=== PATIENT | female | born 1980 | race Caucasian/White ===

== ENCOUNTER 2020-01-18 21:52 | Emergency (ER) | payer OTHER, MEDICAID, SELFPAY ==
[2020-01-18 22:05] VITALS: BP 144/76; PULSE 70; RESP 16; TEMP 37.3; O2SAT 100
--- NOTE | 2020-01-18 22:05 | ED_ITS ---
HPI - General Chief complaint: Vaginal Bleeding Stated complaint: 4 wks abd pain bleeding cramping Time Seen by Provider: 01/18/20 21:52 Source: patient Mode of arrival: Ambulatory Limitations: no limitations History of Present Illness HPI Narrative: 39F non smoker presents with her significant other and chief complaint of vaginal spotting and some lower abdominal discomfort for upwards of 12 days. She was seen and evaluated at an outside clinic and had a positive urine test and was sent here to rule out ectopic. Her bleeding is very minimal and she is not dizzy nor weak or lightheaded. She is a at which she thinks is about 4 weeks. She is otherwise healthy and free of complaint. MD Complaint: vaginal bleeding Onset (ago): day(s) Pain Consistency: intermittent Location: abdomen Severity: mild Quality: Aching Radiation: pelvis Relieving factors: none Exacerbating factors: none Associated symptoms: vaginal bleeding Vaginal discharge: none Vaginal bleeding: light Patient : Yes Number of Weeks : 4 OB History - Current : no complications OB History - Previous Pregnancies: other care: none Related Data : 2 Para: 0 Total number of abortions (spontaneous and elective): 1 Home Medications Medication Instructions Recorded Confirmed No Known Home Medications 01/18/20 01/18/20 Allergies Allergy/AdvReac Type Severity Reaction Status Date / Time No Known Drug Allergies Allergy Verified 01/18/20 22:09 Review of Systems Constitutional Constitutional: Denies chills, Denies fatigue, Denies fever(s), Denies frequent falls, Denies lethargy and Denies weakness Eyes Eyes: Denies change in vision, Denies eye discharge, Denies irritation and Denies loss of vision ENT Ears, Nose, Mouth, and Throat: Denies change in voice, Denies dizziness, Denies neck pain, Denies sore throat and Denies throat swelling Cardiovascular Cardiovascular: Denies chest pain, Denies irregular heart rhythm, Denies lightheadedness, Denies palpitations, Denies dyspnea, Denies dyspnea on exertion and Denies orthopnea Respiratory Respiratory: Denies cough, Denies dyspnea, Denies dyspnea on exertion and Denies wheezing Gastrointestinal Gastrointestinal: Denies abdominal pain, Denies change in bowel habits, Denies diarrhea, Denies nausea and Denies vomiting Genitourinary Genitourinary: Reports abnormal vaginal bleeding, Denies hematuria, Reports pelvic pain, Denies flank pain, Denies urinary incontinence and Denies urinary urgency Musculoskeletal Musculoskeletal: Denies back pain, Denies muscle weakness, Denies neck pain, Denies numbness and Denies tingling Integumentary/Breasts Skin/Breast: Denies pruritus, Denies erythema, Denies rash and Denies wounds Neurologic Neurologic: Denies behavioral changes, Denies confusion, Denies dizziness, Denies frequent falls, Denies loss of vision, Denies numbness, Denies tingling and Denies weakness Psychiatric Psychiatric: Denies anxiety, Denies behavioral changes, Denies confusion, Denies depression, Denies homicidal ideation and Denies suicidal ideation Endocrine Endocrine: Denies fatigue, Denies flushing and Denies palpitations Hematologic/Lymphatic Hematologic/Lymphatic: Denies easy bruising Allergic/Immunologic Allergic/Immunologic: Denies urticaria, Denies throat swelling and Denies wheezing PMFSH - Past Medical History Patient : Yes Exam Narrative Exam Narrative: GENERAL: [39] year old patient appears stated age. Well- nourished, well-developed patient, in mild distress. HEAD: Atraumatic. Normocephalic. EYES: Pupils equal round and reactive. Extraocular motions intact. No scleral icterus. No injection or drainage. ENT: Nose without bleeding, purulent drainage. Throat without erythema, tonsi llar hypertrophy or exudate. Airway patent. NECK: Trachea midline. Non tender CARDIOVASCULAR: Regular rate and rhythm without murmurs, gallops, or rubs. RESPIRATORY: Clear to auscultation. Breath sounds equal bilaterally. No wheezes, rales, or rhonchi. GASTROINTESTINAL: Abdomen soft, minimal lower tenderness, nondistended. EXTREMITIES: No edema or joint tenderness. BACK: Nontender without deformity or crepitance. No flank tenderness. NEURO: AOx3. SKIN: No rash or erythema of visible areas Initial Vital Signs Initial Vital Signs: Vital Signs Temperature 99.1 F 01/18/20 22:05 Pulse Rate 70 01/18/20 22:05 Respiratory Rate 16 01/18/20 22:05 Blood Pressure 144/76 H 01/18/20 22:05 Pulse Oximetry 100 01/18/20 22:05 Procedures Number of Weeks : 4 Course Orders Ordered: ED Orders 01/18/20 22:10 Urine Microscopic Stat 01/18/20 22:21 ABO RH Type Stat Basic Metabolic Panel Stat Complete Blood Count AUTO DIFF Stat HCG Quantitative /Beta subunit Stat 01/18/20 22:54 US pelvic complete Stat Vital Signs Vital signs: Vital Signs - 8 hr 01/18/20 22:05 01/18/20 23:52 Temperature 99.1 F Pulse Rate 70 78 Respiratory Rate 16 16 Blood Pressure 144/76 H Blood Pressure [Left Arm] 120/63 Pulse Oximetry 100 99 MDM - OB/Uterine Contractions Lab Data Result diagrams: 01/18/20 22:21 01/18/20 22:21 Labs: Lab Results 01/18/20 01/18/20 01/18/20 Range/Units 22:10 22:21 22:21 WBC 6.2 (4.5-11.0) X10^3/uL RBC 3.67 L (4.0-5.2) X10^6/uL Hgb 11.7 L (12.0-16.0) g/dL Hct 34.4 L (36-46) % MCV 93.7 (80-100) fL MCH 31.9 (26-34) PG MCHC 34.0 (30-36) % RDW 13.1 (11.6-14.8) % Plt Count 228 (150-400) X10^3/uL Neut % (Auto) 58.1 (50-75) % Lymph % (Auto) 28.2 (25-40) % Prentiss % (Auto) 10.0 (3-14) % Eos % (Auto) 3.2 (2-4) % Baso % (Auto) 0.5 (0-2) % Neut # (Auto) 3600 (3164-6480) /uL Lymph # (Auto) 1800 (2821-7972) /uL Prentiss # (Auto) 600 (0-900) /uL Eos # (Auto) 200 (0-450) /uL Baso # (Auto) 0 (0-100) /uL Sodium (137-145) mmol/L Potassium (3.4-5.1) mmol/L Chloride (98-107) mmol/L Carbon Dioxide (22-32) mmol/L BUN (7-17) mg/dL Creatinine (0.52-1.04) mg/dL Estimated GFR (>60) mL/min BUN/Creatinine Ratio (6-22) Glucose (70-100) mg/dL Calcium (8.4-10.2) mg/dL HCG, Quant mIU/mL Urine RBC 0-1/hpf (0-5/HPF) Urine WBC None seen (0-5/HPF) Ur Squamous Epith Cells 0-1 /hpf (0-5/HPF) Urine Bacteria None seen (None) Ur Culture Indicated? Cult not indicated Blood Type A Positive 01/18/20 01/18/20 Range/Units 22:21 22:21 WBC (4.5-11.0) X10^3/uL RBC (4.0-5.2) X10^6/uL Hgb (12.0-16.0) g/dL Hct (36-46) % MCV (80-100) fL MCH (26-34) PG MCHC (30-36) % RDW (11.6-14.8) % Plt Count (150-400) X10^3/uL Neut % (Auto) (50-75) % Lymph % (Auto) (25-40) % Prentiss % (Auto) (3-14) % Eos % (Auto) (2-4) % Baso % (Auto) (0-2) % Neut # (Auto) (7355-6874) /uL Lymph # (Auto) (9909-6515) /uL Prentiss # (Auto) (0-900) /uL Eos # (Auto) (0-450) /uL Baso # (Auto) (0-100) /uL Sodium 138 (137-145) mmol/L Potassium 3.4 (3.4-5.1) mmol/L Chloride 105 (98-107) mmol/L Carbon Dioxide 28 (22-32) mmol/L BUN 10 (7-17) mg/dL Creatinine 0.66 (0.52-1.04) mg/dL Estimated GFR > 60.0 (>60) mL/min BUN/Creatinine Ratio 15.2 (6-22) Glucose 87 (70-100) mg/dL Calcium 8.9 (8.4-10.2) mg/dL HCG, Quant 77.8 mIU/mL Urine RBC (0-5/HPF) Urine WBC (0-5/HPF) Ur Squamous Epith Cells (0-5/HPF) Urine Bacteria (None) Ur Culture Indicated? Blood Type Point of Care Testing Test Results Positive Urine Dip Bedside Urine Glucose Negative Bedside Urine Bilirubin - Negative Bedside Urine Ketone - Negative Urine Specific Turner 1.010 Bedside Urine Occult Blood ++ Bedside Urine pH 6.0 Bedside Urine Protein - Negative Bedside Urine Urobilinogen - Negative Bedside Urine Nitrite - Negative Bedside Urine Leukocytes - Negative Esterase Imaging Data US - OB: Radiologist's Impression: No IUP, ectopic, or other abnormality MDM Narrative Medical decision making narrative: Most likely dx is missed AB given extremely low HCG and duration of symptoms, though (as discussed at length) with patient her we cannot rule out early ectopic. Patient and understand this concept and the need for follow up and repeat labs. They understand return precautions and have had questions answered to their apparent satisfaction. Discharge Plan Departure Patient Disposition: Home Clinical Impression: Vaginal bleeding, Missed Discharge Date/Time: 01/19/20 00:09 Instructions: DI for Vaginal Bleeding Activity Restrictions/Additional Instructions: *You have been diagnosed with [vaginal bleeding in . Most likely a missed , however early ectopic cannot be ruled out, for this reason you will need repeat labs in 48-72 hours and possibly a repeat ultrasound depending what your provider thinks] *What to do: *Take medications as directed *Follow up with your primary care provider in 2-3 days, call for an appointment. Let them know you were seen in the Emergency Department and that we ask that you be seen in follow up *Return to ER if you should have any new, worsening or concerning symptoms, such as [ increased bleeding (more than 1 pad per hour), severe pain or other bothersome symptoms] Prescriptions: No Action No Known Home Medications RF: 0
--- NOTE | 2020-01-18 22:23 | PC.NURSE ---
Patient reports she began spotting 12 days ago and thought she was simply starting her period, however it has lasted abnormally long with some low back and LLQ abdominal discomfort. Blood is bright red and more however still not a lot the last day.
[2020-01-18 22:24] LABS: Bacteria Urine None Seen; WBC Urine None Seen (0-5/HPF)
[2020-01-18 22:35] LABS: Add Manual Diff / Slide Review NO; Basophils Absolute Auto 0 /uL (0-100); Basophils Percent Auto 0.5 % (0-2); Eosinophils Absolute Auto 200 /uL (0-450); Eosinophils Percent Auto 3.2 % (2-4); Hematocrit 34.4 % (36-46); Hemoglobin 11.7 g/dL (12.0-16.0); Lymphocytes Absolute Auto 1800 /uL (1100-4500); Lymphocytes Percent Auto 28.2 % (25-40); Mean Corpuscular Hemoglobin 31.9 PG (26-34); Mean Corpuscular Volume 93.7 fL (80-100); Monocytes Absolute Auto 600 /uL (0-900); Neutrophils Absolute Auto 3600 /uL (1500-7000); Neutrophils Percent Auto 58.1 % (50-75); Platelet Count 228 X10^3/uL (150-400); Red Blood Cell Count 3.67 X10^6/uL (4.0-5.2); Red Cell Distribution Width 13.1 % (11.6-14.8); White Blood Cell Count 6.2 X10^3/uL (4.5-11.0)
[2020-01-18 22:37] LABS: Culture Indicated Urine Cult Not Indicated; RBC Urine 0-1/HPF (0-5/HPF); Squamous Epithelial Cell Urine 0-1 /HPF (0-5/HPF)
[2020-01-18 22:41] LABS: BUN Creatinine Ratio 15.2 (6-22); Blood Urea Nitrogen 10 mg/dL (7-17); Calcium 8.9 mg/dL (8.4-10.2); Carbon Dioxide 28 mmol/L (22-32); Chloride 105 mmol/L (98-107); Estimated Glomerular Filt Rate > 60.0 mL/min (>60); Glucose 87 mg/dL (70-100); HEMOLYSIS < 15 (0-50); Potassium 3.4 mmol/L (3.4-5.1); Sodium 138 mmol/L (137-145)
--- NOTE | 2020-01-18 22:54 | DI.US.S_ITS ---
PROCEDURE: US PELVIC COMPLETE INDICATIONS: PAIN, BLEEDING; POSITIVE TECHNIQUE: Real-time scanning was performed of the pelvic organs, with image documentation. Additional endovaginal scanning was necessary due to incomplete visualization of the adnexal and endometrial structures by transabdominal scanning. COMPARISON: None. FINDINGS: Transabdominal scanning: Limited scanning through the kidneys shows no hydronephrosis. No pathologic free abdominal or pelvic fluid. Endovaginal scanning: Uterus: Uterus is anteverted and normal in size at 7.7 x 3.7 x 6.8 cm. The endometrium measures 3.8 mm in combined thickness. No endometrial fluid collections. Ovaries: The right ovary measures 2.4 x 1.5 x 2.7 cm. The left ovary measures 3.0 x 1.8 x 1.2 cm. There is a normal follicular echotexture and blood flow within each ovary. No suspicious adnexal masses. No free pelvic fluid. IMPRESSION: 1. No evidence of intrauterine . This may represent a very early or failed . Clinical correlation with serial beta hCG levels is recommended. Followup ultrasound imaging if beta hCG levels rise. 2. Normal ovaries. Dictated by: Danielle Rollins M.D. on 01/19/2020 at 9:15 Approved by: Danielle Rollins M.D. on 01/19/2020 at 9:17
[2020-01-18 23:23] LABS: HCG Quantitative /Beta subunit 77.8 mIU/mL
[2020-01-18 23:52] VITALS: BP 120/63; PULSE 78; RESP 16; O2SAT 99
== END 2020-01-19 00:09 | disposition home or self-care (01) ==
PROVIDERS: Emergency Provider Emergency Medicine
DX: O02.1 Missed abortion (principal)
CPT/HCPCS: 36415; 76830; 76856; 80048; 81003; 81015; 81025; 84702; 85025; 86900; 86901; 99283; 99284

== ENCOUNTER → 2021-11-07 11:09 | Outpatient (CLI) | payer OTHER, MEDICAID, SELFPAY ==
[2021-11-07 18:47] LABS: Add Manual Diff / Slide Review NO; Basophils Absolute Auto 0 /uL (0-100); Basophils Percent Auto 0.5 % (0-2); Eosinophils Absolute Auto 100 /uL (0-450); Eosinophils Percent Auto 3.2 % (2-4); Hematocrit 37.9 % (36-46); Hemoglobin 12.6 g/dL (12.0-16.0); Lymphocytes Absolute Auto 900 /uL (1100-4500); Mean Corpuscular HGB Conc 33.3 % (30-36); Mean Corpuscular Hemoglobin 30.9 PG (26-34); Mean Corpuscular Volume 92.8 fL (80-100); Monocytes Absolute Auto 400 /uL (0-900); Neutrophils Absolute Auto 2800 /uL (1500-7000); Neutrophils Percent Auto 65.3 % (50-75); Platelet Count 214 X10^3/uL (150-400); Red Blood Cell Count 4.08 X10^6/uL (4.0-5.2); Red Cell Distribution Width 12.6 % (11.6-14.8); White Blood Cell Count 4.3 X10^3/uL (4.5-11.0)
[2021-11-07 18:54] LABS: Alanine Aminotransferase 10 IU/L (<35); Albumin 4.2 g/dL (3.5-5.0); Albumin Globulin Ratio 1.6 (1.0-2.8); Alkaline Phosphatase 40 U/L (38-126); Aspartate Aminotransferase 21 IU/L (14-36); BUN Creatinine Ratio 17.5 (6-22); Bilirubin Total 0.5 mg/dL (0.2-1.3); Blood Urea Nitrogen 11 mg/dL (7-17); Calcium 9.1 mg/dL (8.4-10.2); Carbon Dioxide 30 mmol/L (22-32); Chloride 106 mmol/L (98-107); Estimated Glomerular Filt Rate > 60.0 mL/min (>60); Globulin 2.6 g/dL (1.7-4.1); Glucose 85 mg/dL (70-100); HEMOLYSIS < 15 (0-50); Potassium 4.1 mmol/L (3.4-5.1); Sodium 139 mmol/L (137-145); Total Protein 6.8 g/dL (6.3-8.2)
[2021-11-07 19:20] LABS: Follicle Stimulating Hormone 8.27 mIU/mL; Luteinizing Hormone 7.69 mIU/mL
[2021-11-07 19:30] LABS: Thyroid Stimulating Hormone 0.847 uIU/mL (0.47-4.68)
[2021-11-07 20:07] LABS: Free T3, Triiodothyronine Free 3.35 pg/mL (2.77-5.27); Free T4, Direct Thyroxine 1.14 ng/dL (0.78-2.19)
[2021-11-07 20:14] LABS: Vitamin D 25 Hydroxy (D3) 32.3 ng/mL (30.0-100.0)
== END ==
PROVIDERS: PCP Physician Assistant Medical; Visit Provider Physician Assistant Medical
DX: R79.89 Other specified abnormal findings of blood chemistry (principal); E07.9 Disorder of thyroid, unspecified; E04.1 Nontoxic single thyroid nodule; N94.3 Premenstrual tension syndrome
CPT/HCPCS: 80053; 82306; 83001; 83002; 84439; 84443; 84481; 85025

== ENCOUNTER → 2022-12-12 10:40 | Outpatient (CLI) | payer OTHER, MEDICAID, SELFPAY ==
[2022-12-12 19:55] LABS: Add Manual Diff / Slide Review NO; Basophils Absolute Auto 0 /uL (0-100); Basophils Percent Auto 0.4 % (0-2); Eosinophils Absolute Auto 200 /uL (0-450); Eosinophils Percent Auto 3.7 % (2-4); Hematocrit 38.1 % (36-46); Hemoglobin 12.8 g/dL (12.0-16.0); Lymphocytes Absolute Auto 1200 /uL (1100-4500); Lymphocytes Percent Auto 28.6 % (25-40); Mean Corpuscular HGB Conc 33.5 % (30-36); Mean Corpuscular Hemoglobin 30.9 PG (26-34); Mean Corpuscular Volume 92.2 fL (80-100); Monocytes Absolute Auto 300 /uL (0-900); Monocytes Percent Auto 7.7 % (3-14); Neutrophils Absolute Auto 2600 /uL (1500-7000); Neutrophils Percent Auto 59.6 % (50-75); Platelet Count 190 X10^3/uL (150-400); Red Blood Cell Count 4.13 X10^6/uL (4.0-5.2); White Blood Cell Count 4.3 X10^3/uL (4.5-11.0)
[2022-12-12 20:08] LABS: Alanine Aminotransferase 14 IU/L (<35); Albumin 3.9 g/dL (3.5-5.0); Albumin Globulin Ratio 1.6 (1.0-2.8); Alkaline Phosphatase 47 U/L (38-126); Aspartate Aminotransferase 22 IU/L (14-36); BUN Creatinine Ratio 17.6 (6-22); Bilirubin Total 0.3 mg/dL (0.2-1.3); Blood Urea Nitrogen 12 mg/dL (7-17); Carbon Dioxide 30 mmol/L (22-32); Chloride 102 mmol/L (98-107); Cholesterol 154 mg/dL (140-199); Estimated Glomerular Filt Rate > 60 mL/min (>60); Globulin 2.5 g/dL (1.7-4.1); Glucose 64 mg/dL (70-100); HDL Cholesterol 49 mg/dL (40-60); HEMOLYSIS < 15 (0-50); LDL Cholesterol Calculated 95 mg/dL (<100); Potassium 4.2 mmol/L (3.4-5.1); Sodium 139 mmol/L (137-145); Total Protein 6.4 g/dL (6.3-8.2); Triglycerides 50 mg/dL (35-150)
[2022-12-12 20:16] LABS: Free T3, Triiodothyronine Free 3.45 pg/mL (2.77-5.27)
[2022-12-12 20:18] LABS: Follicle Stimulating Hormone 15.7 mIU/mL; Luteinizing Hormone 12.5 mIU/mL
[2022-12-12 20:30] LABS: TSH w/ Reflex to FT4 0.62 uIU/mL (0.47-4.68)
== END ==
PROVIDERS: PCP Physician Assistant Medical; Visit Provider Physician Assistant Medical
DX: N94.3 Premenstrual tension syndrome (principal); R79.89 Other specified abnormal findings of blood chemistry; Z13.220 Encounter for screening for lipoid disorders
CPT/HCPCS: 80053; 80061; 83001; 83002; 84443; 84481; 85025

== ENCOUNTER → 2022-12-28 11:58 | Outpatient (CLI) | payer OTHER, MEDICAID, SELFPAY ==
[2022-12-28 12:39] LABS: Add Manual Diff / Slide Review NO; Basophils Absolute Auto 0 /uL (0-100); Basophils Percent Auto 0.5 % (0-2); Eosinophils Absolute Auto 100 /uL (0-450); Eosinophils Percent Auto 2.2 % (2-4); Hemoglobin 11.7 g/dL (12.0-16.0); Lymphocytes Absolute Auto 800 /uL (1100-4500); Lymphocytes Percent Auto 20.2 % (25-40); Mean Corpuscular HGB Conc 33.5 % (30-36); Mean Corpuscular Hemoglobin 30.5 PG (26-34); Mean Corpuscular Volume 91.1 fL (80-100); Monocytes Absolute Auto 300 /uL (0-900); Monocytes Percent Auto 8.1 % (3-14); Neutrophils Absolute Auto 2600 /uL (1500-7000); Platelet Count 209 X10^3/uL (150-400); Red Blood Cell Count 3.83 X10^6/uL (4.0-5.2); Red Cell Distribution Width 12.7 % (11.6-14.8); White Blood Cell Count 3.8 X10^3/uL (4.5-11.0)
[2022-12-28 15:03] LABS: Follicle Stimulating Hormone 16.1 mIU/mL; Luteinizing Hormone 6.93 mIU/mL
[2023-01-05 16:36] LABS: Anti Mullerian Hormone 0.351 ng/mL (.)
== END ==
PROVIDERS: PCP Physician Assistant Medical; Referring Provider Physician Assistant Medical; Visit Provider Physician Assistant Medical
DX: R79.89 Other specified abnormal findings of blood chemistry (principal); N94.3 Premenstrual tension syndrome
CPT/HCPCS: 36415; 82397; 83001; 83002; 85025

== ENCOUNTER → 2023-02-06 13:35 | Outpatient (CLI) | payer OTHER, MEDICAID, SELFPAY ==
[2023-02-06 19:36] LABS: HEMOLYSIS < 15 (0-50); Iron 102 ug/dL (37-170)
[2023-02-06 19:41] LABS: Add Manual Diff / Slide Review NO; Basophils Absolute Auto 100 /uL (0-100); Basophils Percent Auto 1.1 % (0-2); Eosinophils Absolute Auto 100 /uL (0-450); Eosinophils Percent Auto 2.2 % (2-4); Hematocrit 36.4 % (36-46); Hemoglobin 12.2 g/dL (12.0-16.0); Lymphocytes Absolute Auto 1100 /uL (1100-4500); Mean Corpuscular HGB Conc 33.6 % (30-36); Mean Corpuscular Hemoglobin 31.2 PG (26-34); Mean Corpuscular Volume 93.1 fL (80-100); Monocytes Absolute Auto 500 /uL (0-900); Monocytes Percent Auto 9.8 % (3-14); Neutrophils Absolute Auto 3800 /uL (1500-7000); Neutrophils Percent Auto 67.9 % (50-75); Platelet Count 191 X10^3/uL (150-400); Red Blood Cell Count 3.91 X10^6/uL (4.0-5.2); Red Cell Distribution Width 13.2 % (11.6-14.8); White Blood Cell Count 5.6 X10^3/uL (4.5-11.0)
[2023-02-06 19:51] LABS: Percent Iron Saturation 39 % (15-50); Total Iron Binding Capacity 260 ug/dL (265-497); Transferrin 173 mg/dL (206-381)
[2023-02-06 20:10] LABS: Ferritin 23 ng/mL (6-137)
[2023-02-06 20:41] LABS: Folate > 20.0 ng/mL (2.76-20.0); Vitamin B12 270 pg/mL (239-931)
== END ==
PROVIDERS: PCP Physician Assistant Medical; Visit Provider Physician Assistant
DX: D64.9 Anemia, unspecified (principal); K62.5 Hemorrhage of anus and rectum
CPT/HCPCS: 82607; 82728; 82746; 83540; 83550; 85025

== ENCOUNTER 2023-08-05 10:31 | Day surgery (SDC) | payer OTHER, MEDICAID, SELFPAY ==
[2023-08-05 10:41] VITALS: BP 116/70; PULSE 65; RESP 16; TEMP 36.8; O2SAT 100; BMI 20.5
[2023-08-05] MEDS: LACTATED RINGERS 1,000 ML 150 ML IV (10:58)
--- NOTE | 2023-08-05 11:18 | PM.HP.1 ---
History of Present Illness History of Present Illness Date Patient Seen: 08/05/23 Time Patient Seen: 11:18 Chief complaint: Screening Colonoscopy Narrative: The patient presents for colorectal screening. They have never had any previous examination for such. No personal or family history of colon cancer. No abdominal concerns today including but not limited to rectal bleeding unintentional weight loss, abdominal pain. She endorses chronic and intermittent abdominal bloating PFSH Medical History Pre-conception counseling Diarrhea of presumed infectious origin History of abnormal cervical Pap smear Screening for cervical cancer Health maintenance examination , threatened, early Social History household members: significant other Smoking Status: Former smoker quit status: quit date established alcohol intake: current additional social history: QUIT DATE SMOKIN11/09/2014 Meds Home Medications and Allergies Home Medications Medication Instructions Recorded Confirmed Type No Known Home Medications 08/05/23 08/05/23 History Allergies Allergy/AdvReac Type Severity Reaction Status Date / Time No Known Drug Allergies Allergy Verified 01/27/23 15:39 Exam Vital Signs (past 8 hours): - 08/05/23 10:41 Temperature 98.2 F Pulse Rate 65 Respiratory Rate 16 Blood Pressure 116/70 Pulse Oximetry 100 Oxygen Delivery Method Room Air Oxygen Delivery Method Room Air Narrative Exam Narrative: General adult woman alert oriented no acute distress Chest nonlabored respiration Extremities warm well perfused Assessment & Plan Assessment & Plan narrative: The patient requires colorectal screening and colonoscopy is recommended. Technical details were discussed. Risks, benefits, alternatives explained. Risks including but not limited to myocardial infarction, aspiration, bleeding, pain, missed lesion, incomplete examination, need for further radiographic studies, colonic perforation, and need for major abdominal surgery were discussed. All questions were answered to their satisfaction, and they are in agreement with this plan.
--- NOTE | 2023-08-05 11:25 | P.OP.COLON_ITS ---
Operative Date/Time/Diagnoses Date of procedure: 08/05/23 Time of procedure: 11:25 Pre-op diagnosis: Colorectal screening Procedure & Clinicians Study performed: Colonoscopy Same procedure as scheduled: Yes Indications: Colorectal screening Surgeon: Alvarez Martinez Procedure Notes Procedure in detail: The history and physical was performed/updated and the patient is ASA class is 2. The procedure was discussed in detail with the patient. Potential risks complications including infection, bleeding, missed diagnosis, perforation, need for surgery, and were explained. Their questions were answered and informed consent was obtained. Patient was brought to the procedure room and placed standard monitoring equipment. The patient's vital signs were monitored continuously throughout the entire procedure. Prior to starting time-out was performed. The patient was placed in the left lateral recumbent position. Procedural sedation was administered by anesthesia. Examination began with a thorough inspection of the perianal area there was no evidence of fissures, fistulae, external hemorrhoids or cutaneous malignancy. The colonoscopy scope was then placed into the anal canal and was advanced to the cecum, which was identified by the ileocecal valve , the appendiceal orifice and the confluence of the taenia. The scope was then slowly withdrawn examining colon thoroughly in all directions, irrigating it of any residual stool. The scope was retroflexed within the rectum The patient tolerated the procedure well. They will be discharged once criteria are met. The prep was of good/excellent quality. The withdrawl time was 9 minutes. FINDINGS * No masses polyps or inflammation * Grade 1 internal hemorrhoids Specimen(s): none sent Complications: none Impression: Normal colonoscopy Post-procedure Recommendations: Colonoscopy in 10 years and High fiber diet Plan for aftercare: Repeat 10 years Disposition: same day surgery
[2023-08-05 11:50] VITALS: BP 105/67; PULSE 75; RESP 12; TEMP 36.1; O2SAT 98
[2023-08-05 11:51] VITALS: BP 115/59; PULSE 68; RESP 16; O2SAT 99
[2023-08-05 11:56] VITALS: BP 119/73; PULSE 73; RESP 20; O2SAT 99
--- NOTE | 2023-08-05 11:56 | SUR.PHASEI ---
Received to PACU after MAC. Report received from Dr Abbott and ANTONY Sanders.
[2023-08-05 12:01] VITALS: BP 112/63; PULSE 72; RESP 16; O2SAT 100
[2023-08-05 12:03] VITALS: BP 117/69; PULSE 64; RESP 12; O2SAT 100
== END 2023-08-05 12:20 | disposition home or self-care (01) ==
PROVIDERS: Surgery; PCP Physician Assistant Medical; Referring Provider Surgery; Visit Provider Surgery
PROC: 0DJD8ZZ Inspection of Lower Intestinal Tract, Via Natural or Artificial Opening Endoscopic (ICD-10-PCS; CPT 45378; principal; 2023-08-05 11:30)
DX: Z12.11 Encounter for screening for malignant neoplasm of colon (principal); K64.8 Other hemorrhoids
CPT/HCPCS: 45378

== ENCOUNTER → 2023-10-29 13:10 | Outpatient (CLI) | payer OTHER, MEDICAID, SELFPAY ==
[2023-10-29 19:50] LABS: Add Manual Diff / Slide Review NO; Basophils Absolute Auto 0 /uL (0-100); Basophils Percent Auto 0.7 % (0-2); Eosinophils Absolute Auto 100 /uL (0-450); Hematocrit 37.3 % (36-46); Hemoglobin 12.5 g/dL (12.0-16.0); Lymphocytes Absolute Auto 1200 /uL (1100-4500); Mean Corpuscular HGB Conc 33.4 % (30-36); Mean Corpuscular Hemoglobin 31.4 PG (26-34); Monocytes Absolute Auto 600 /uL (0-900); Monocytes Percent Auto 8.7 % (3-14); Neutrophils Absolute Auto 4700 /uL (1500-7000); Neutrophils Percent Auto 70.6 % (50-75); Platelet Count 231 X10^3/uL (150-400); Red Blood Cell Count 3.97 X10^6/uL (4.0-5.2); Red Cell Distribution Width 15.5 % (11.6-14.8); White Blood Cell Count 6.6 X10^3/uL (4.5-11.0)
[2023-10-29 19:56] LABS: HEMOLYSIS 16 (0-50); Iron 213 ug/dL (37-170)
[2023-10-29 19:58] LABS: Alanine Aminotransferase 25 IU/L (<35); Albumin 4.5 g/dL (3.5-5.0); Albumin Globulin Ratio 1.6 (1.0-2.8); Alkaline Phosphatase 55 U/L (38-126); Aspartate Aminotransferase 34 IU/L (14-36); BUN Creatinine Ratio 18.8 (6-22); Bilirubin Total 0.7 mg/dL (0.2-1.3); Blood Urea Nitrogen 12 mg/dL (7-17); C-Reactive Protein Quant < 0.5 mg/dL (<1.0); Calcium 9.6 mg/dL (8.4-10.2); Carbon Dioxide 25 mmol/L (22-32); Chloride 102 mmol/L (98-107); Estimated Glomerular Filt Rate > 60 mL/min (>60); Globulin 2.9 g/dL (1.7-4.1); Glucose 101 mg/dL (70-100); HEMOLYSIS < 15 (0-50); Potassium 4.6 mmol/L (3.4-5.1); Sodium 138 mmol/L (137-145); Total Protein 7.4 g/dL (6.3-8.2)
[2023-10-29 20:09] LABS: Erythrocyte Sedimentation Rate 10 MM/HR (0-20)
[2023-10-29 20:10] LABS: Percent Iron Saturation 91 % (15-50); Total Iron Binding Capacity 233 ug/dL (265-497); Transferrin 202 mg/dL (206-381)
[2023-10-29 20:36] LABS: Ferritin 45 ng/mL (6-137)
== END ==
PROVIDERS: Physician Assistant; PCP Physician Assistant Medical; Visit Provider Physician Assistant Medical
DX: A87.9 Viral meningitis, unspecified (principal); D64.9 Anemia, unspecified
CPT/HCPCS: 80053; 82728; 83540; 83550; 85025; 85651; 86140

== ENCOUNTER → 2023-12-02 12:38 | Outpatient (CLI) | payer OTHER, MEDICAID, SELFPAY ==
[2023-12-02 19:00] LABS: Add Manual Diff / Slide Review NO; Basophils Absolute Auto 0 /uL (0-100); Basophils Percent Auto 0.7 % (0-2); Eosinophils Absolute Auto 100 /uL (0-450); Eosinophils Percent Auto 2.8 % (2-4); Hematocrit 39.3 % (36-46); Hemoglobin 13.1 g/dL (12.0-16.0); Lymphocytes Absolute Auto 1100 /uL (1100-4500); Lymphocytes Percent Auto 22.4 % (25-40); Mean Corpuscular HGB Conc 33.2 % (30-36); Mean Corpuscular Hemoglobin 31.5 PG (26-34); Mean Corpuscular Volume 94.7 fL (80-100); Monocytes Absolute Auto 500 /uL (0-900); Monocytes Percent Auto 10.9 % (3-14); Neutrophils Absolute Auto 3100 /uL (1500-7000); Neutrophils Percent Auto 63.2 % (50-75); Platelet Count 229 X10^3/uL (150-400); Red Blood Cell Count 4.16 X10^6/uL (4.0-5.2); Red Cell Distribution Width 13.8 % (11.6-14.8); White Blood Cell Count 4.9 X10^3/uL (4.5-11.0)
[2023-12-02 19:06] LABS: HEMOLYSIS < 15 (0-50); Iron 135 ug/dL (37-170)
[2023-12-02 19:19] LABS: Percent Iron Saturation 54 % (15-50); Total Iron Binding Capacity 251 ug/dL (265-497); Transferrin 220 mg/dL (206-381)
[2023-12-02 19:39] LABS: TSH w/ Reflex to FT4 0.79 uIU/mL (0.47-4.68)
[2023-12-02 20:00] LABS: Vitamin B12 441 pg/mL (239-931)
== END ==
PROVIDERS: PCP Physician Assistant Medical; Visit Provider Physician Assistant Medical
DX: D64.9 Anemia, unspecified (principal); R79.89 Other specified abnormal findings of blood chemistry
CPT/HCPCS: 82607; 83540; 83550; 84443; 85025

== ENCOUNTER → 2024-04-14 11:35 | Outpatient (CLI) | payer OTHER, MEDICAID, SELFPAY ==
[2024-04-14 22:17] LABS: Add Manual Diff / Slide Review NO; Basophils Absolute Auto 0 /uL (0-100); Basophils Percent Auto 0.4 % (0-2); Eosinophils Absolute Auto 100 /uL (0-450); Eosinophils Percent Auto 1.4 % (2-4); Hematocrit 38.5 % (36-46); Hemoglobin 12.7 g/dL (12.0-16.0); Lymphocytes Absolute Auto 800 /uL (1100-4500); Mean Corpuscular Hemoglobin 31.6 PG (26-34); Mean Corpuscular Volume 95.7 fL (80-100); Monocytes Absolute Auto 300 /uL (0-900); Monocytes Percent Auto 6.2 % (3-14); Neutrophils Absolute Auto 4000 /uL (1500-7000); Platelet Count 213 X10^3/uL (150-400); Red Blood Cell Count 4.02 X10^6/uL (4.0-5.2); Red Cell Distribution Width 13.1 % (11.6-14.8); White Blood Cell Count 5.3 X10^3/uL (4.5-11.0)
[2024-04-14 22:32] LABS: HEMOLYSIS < 15 (0-50)
[2024-04-14 22:35] LABS: HEMOLYSIS < 15 (0-50); Iron 178 ug/dL (37-170)
[2024-04-14 22:37] LABS: Alanine Aminotransferase 15 IU/L (<35); Albumin 4.1 g/dL (3.5-5.0); Albumin Globulin Ratio 1.7 (1.0-2.8); Alkaline Phosphatase 47 U/L (38-126); Aspartate Aminotransferase 24 IU/L (14-36); BUN Creatinine Ratio 16.9 (6-22); Bilirubin Total 0.5 mg/dL (0.2-1.3); Blood Urea Nitrogen 12 mg/dL (7-17); Carbon Dioxide 25 mmol/L (22-32); Chloride 108 mmol/L (98-107); Estimated Glomerular Filt Rate > 60 mL/min (>60); Globulin 2.4 g/dL (1.7-4.1); Glucose 97 mg/dL (70-100); Potassium 4.4 mmol/L (3.4-5.1); Sodium 139 mmol/L (137-145); Total Protein 6.5 g/dL (6.3-8.2)
[2024-04-14 22:43] LABS: Vitamin D 25 Hydroxy (D3) 43.9 ng/mL (30.0-100.0)
[2024-04-14 22:49] LABS: Total Iron Binding Capacity 250 ug/dL (265-497)
[2024-04-14 22:50] LABS: Transferrin 189 mg/dL (206-381)
[2024-04-14 22:56] LABS: Free T3, Triiodothyronine Free 3.63 pg/mL (2.77-5.27)
[2024-04-14 22:58] LABS: HCG Quantitative /Beta subunit < 2.39 mIU/mL
[2024-04-14 23:08] LABS: Percent Iron Saturation 71 % (15-50)
[2024-04-14 23:10] LABS: TSH w/ Reflex to FT4 0.65 uIU/mL (0.47-4.68)
[2024-04-14 23:16] LABS: Ferritin 21 ng/mL (6-137)
[2024-04-14 23:29] LABS: Vitamin B12 334 pg/mL (239-931)
== END ==
PROVIDERS: PCP Physician Assistant Medical; Visit Provider Physician Assistant
DX: D64.9 Anemia, unspecified (principal); R42 Dizziness and giddiness; R79.89 Other specified abnormal findings of blood chemistry; R53.83 Other fatigue; E04.1 Nontoxic single thyroid nodule
CPT/HCPCS: 80053; 82306; 82607; 82728; 83540; 83550; 84443; 84481; 84702; 85025

== ENCOUNTER 2024-09-04 14:56 | Emergency (ER) | payer OTHER, SELFPAY ==
[2024-09-04] VITALS (10 sets, daily range): BP systolic 114–146; BP diastolic 66–83; PULSE 54–80; RESP 12–24; TEMP 36.9; O2SAT 94–100; BMI 21.2
--- NOTE | 2024-09-04 15:10 | DI.RAD.S_ITS ---
PROCEDURE: XR CHEST 1V INDICATIONS: chest pain TECHNIQUE: One view of the chest was acquired. COMPARISON: [facility] ([place]), CR, XR CHEST 2V, 04/19/2024, 15:25. FINDINGS: Surgical changes and devices: None. Lungs and pleura: Lungs are clear. No pleural effusions or pneumothorax. Mediastinum: Mediastinal contours appear normal. Heart size is normal. Bones and chest wall: No suspicious bony lesions. Overlying soft tissues appear unremarkable. IMPRESSION: No acute cardiopulmonary abnormality is seen. Dictated by: Deniz Garcia M.D. on 09/04/2024 at 15:00 Approved by: Deniz Garcia M.D. on 09/04/2024 at 15:01
--- NOTE | 2024-09-04 15:10 | EKG_ITS ---
[facility] [address] [place] [address] Test Date: 2024-09-04 Pat Name: Melissa Owen Department: [facility] Room: Gender: Female Digital Program Manager: EDUARDO : 1980 Requested By: Order Number: [id number] Reading MD: Davin Juan Measurements Intervals [place] Rate: 63 P: 61 [place]: 156 QRS: 13 QRSD: 100 T: 45 QT: 400 QTc: 409 Interpretive Statements Normal sinus rhythm Electronically Signed On 09-06-2024 11:13:26 PST by Davin Juan
[2024-09-04 15:41] LABS: Add Manual Diff / Slide Review NO; Basophils Absolute Auto 0 /uL (0-100); Basophils Percent Auto 0.4 % (0-2); Eosinophils Absolute Auto 100 /uL (0-450); Eosinophils Percent Auto 2.5 % (2-4); Hematocrit 41.1 % (36-46); Hemoglobin 13.7 g/dL (12.0-16.0); Lymphocytes Absolute Auto 1000 /uL (1100-4500); Lymphocytes Percent Auto 17.6 % (25-40); Mean Corpuscular HGB Conc 33.4 % (30-36); Mean Corpuscular Hemoglobin 31.9 PG (26-34); Mean Corpuscular Volume 95.6 fL (80-100); Monocytes Absolute Auto 500 /uL (0-900); Neutrophils Absolute Auto 4100 /uL (1500-7000); Neutrophils Percent Auto 70.5 % (50-75); Platelet Count 252 X10^3/uL (150-400); Red Cell Distribution Width 12.9 % (11.6-14.8); White Blood Cell Count 5.8 X10^3/uL (4.5-11.0)
[2024-09-04 15:44] LABS: INR 1.1 (0.9-1.3)
[2024-09-04 15:46] LABS: PTT Partial Thromboplastin Tim 32 SECONDS (25.1-36.5)
[2024-09-04 15:48] LABS: Alanine Aminotransferase 20 IU/L (<35); Albumin 4.8 g/dL (3.5-5.0); Albumin Globulin Ratio 1.7 (1.0-2.8); Alkaline Phosphatase 49 U/L (38-126); Aspartate Aminotransferase 33 IU/L (14-36); BUN Creatinine Ratio 19.1 (6-22); Bilirubin Total 0.4 mg/dL (0.2-1.3); Blood Urea Nitrogen 13 mg/dL (7-17); Calcium 9.3 mg/dL (8.4-10.2); Carbon Dioxide 27 mmol/L (22-32); Chloride 105 mmol/L (98-107); Creatine Kinase 51 U/L (30-135); Estimated Glomerular Filt Rate > 60 mL/min (>60); Globulin 2.8 g/dL (1.7-4.1); Glucose 107 mg/dL (70-100); HEMOLYSIS 31 (0-50); Lipase 187 U/L (23-300); Magnesium 1.9 mg/dL (1.6-2.3); Potassium 3.9 mmol/L (3.4-5.1); Sodium 140 mmol/L (137-145); Total Protein 7.6 g/dL (6.3-8.2)
[2024-09-04 15:59] LABS: NT-proBNP (BNP-Adult 18+) 40 pg/mL (<125); Troponin I < 0.012 ng/mL (0.01-0.034)
[2024-09-04] MEDS: ASPIRIN 81 MG CHEW TAB 324 MG PO (17:18)
--- NOTE | 2024-09-04 17:37 | ED.CHESTPAIN ---
HPI - Chest Pain General Chief Complaint: Chest Pain Stated Complaint: [facility]; Mini Stroke-Like Symptoms Time Seen by Provider: 09/04/24 16:53 Source: patient Mode of arrival: Ambulatory Limitations: no limitations History of Present Illness HPI narrative: 44-year-old female referred [facility], complains of intermittent dizziness and chest discomfort for a number of weeks, early morning after midnight 2 days ago she was awake shortly after midnight and was unable to speak, was unable to move when addressed by her partner, arms felt heavily, legs felt heavy, not paralyzed but very weak in arms and legs, and unable to get her words out for about 10 minutes, improved, slept, felt some fatigue the following day that seemed to improve through the day. Here at hospital with partner who himself was at hospital for diagnostic medical imaging, when she decided to be evaluated for her recent resolved symptoms, went to [facility], referred to ED for further evaluation. No current neurological symptoms. No current dizziness or chest pain or numbness or weakness symptoms. Denies drug or alcohol use. Denies trauma, new activities, new medications, changes in medications. No known seizure history. Prior viral meningitis illness Aug 2023, had recovered. Related Data Previous Rx's Medication Instructions Recorded valacyclovir 1 gram tablet 1,000 mg PO DAILY #90 tabs 10/08/23 alprazolam 0.25 mg tablet 0.125 mg (1/2 x 0.25 mg) PO BID 04/19/24 PRN anxiety #10 tabs Allergies Allergy/AdvReac Type Severity Reaction Status Date / Time No Known Drug Allergies Allergy Verified 05/11/24 14:02 Patient History Medical History Pre-conception counseling Diarrhea of presumed infectious origin History of abnormal cervical Pap smear Screening for cervical cancer Health maintenance examination , threatened, early Social History household members: significant other Smoking Status: Former smoker quit status: quit date established alcohol intake: current additional social history: QUIT DATE SMOKIN11/09/2014 Smoking Status: Former smoker alcohol intake frequency: a few times a week Alcohol type: beer Exam Narrative Exam Narrative: GENERAL: Well-developed patient, in mild distress. HEAD: Atraumatic. Normocephalic. EYES: Pupils equal round and reactive. Extraocular motions intact. No scleral icterus. No injection or drainage. ENT: Nose without bleeding, purulent drainage. Throat without erythema, tonsillar hypertrophy or exudate. Airway patent. NECK: Trachea midline. Non tender CARDIOVASCULAR: Regular rate and rhythm without murmurs, gallops, or rubs. RESPIRATORY: Clear to auscultation. Breath sounds equal bilaterally. No wheezes, rales, or rhonchi. GASTROINTESTINAL: Abdomen soft, non-tender, nondistended. EXTREMITIES: No edema or gross deformities obvious. NEURO: Alert, clear speech, cooperative. Cranial nerves exam unremarkable. Motor functions 5/5 bilateral upper and lower extremities. Sensory intact to light touch face arm or legs. Wbxpij-hr-zirn and gtyf-xw-hjcx testing normal. SKIN: No rash or erythema of visible areas Initial Vital Signs Initial Vital Signs: Vital Signs Temperature 98.5 F 09/04/24 15:04 Pulse Rate 65 09/04/24 15:04 Respiratory Rate 18 09/04/24 15:04 Blood Pressure 146/75 H 09/04/24 15:04 Pulse Oximetry 100 09/04/24 15:04 Oxygen Delivery Method Room Air 09/04/24 15:04 Course Orders Ordered: ED Orders 09/04/24 15:10 XR chest 1V Stat EKG-12 Lead Stat 09/04/24 15:27 Complete Blood Count AUTO DIFF Stat Comprehensive Metabolic Panel Stat Lipase Stat Magnesium Stat NT-proBNP (BNP-Adult 18+) Stat PTT Partial Thromboplastin Claudy Stat Prothrombin Time INR Stat Troponin & CK Cardiac Panel Stat 09/04/24 17:42 CT head/brain wo con Stat 09/04/24 17:43 CT angio head and neck Stat 09/04/24 17:55 Troponin I Stat Discontinued Medications Aspirin (Aspirin 81 Mg Chew Tab) 324 mg PO NOW ONE Stop: 09/04/24 15:11 Last Admin: 09/04/24 17:18 Dose: 324 mg Documented By: HEMANTH Vital Signs Vital signs: Vital Signs - 8 hr 09/04/24 15:04 09/04/24 15:35 09/04/24 15:37 Temperature 98.5 F Pulse Rate 65 80 67 Respiratory Rate 18 16 Blood Pressure 146/75 H Pulse Oximetry 100 100 Oxygen Delivery Method Room Air Room Air 09/04/24 15:37 09/04/24 16:00 09/04/24 16:00 Temperature Pulse Rate 65 Respiratory Rate 12 Blood Pressure 140/66 116/70 Pulse Oximetry 98 Oxygen Delivery Method 09/04/24 16:30 09/04/24 16:30 09/04/24 17:00 Temperature Pulse Rate 58 L 54 L Respiratory Rate 16 24 Blood Pressure 114/66 Pulse Oximetry 94 96 Oxygen Delivery Method Room Air 09/04/24 17:00 09/04/24 17:30 09/04/24 17:30 Temperature Pulse Rate 59 L Respiratory Rate 18 Blood Pressure 118/66 130/69 Pulse Oximetry 100 Oxygen Delivery Method 09/04/24 17:55 09/04/24 17:55 09/04/24 18:00 Temperature Pulse Rate 73 71 Respiratory Rate 23 22 Blood Pressure 124/76 Pulse Oximetry 100 99 Oxygen Delivery Method 09/04/24 19:16 Temperature Pulse Rate 72 Respiratory Rate 16 Blood Pressure 118/83 Pulse Oximetry 100 Oxygen Delivery Method MDM - Chest Pain Lab Data Attestation: I reviewed the patient's lab results. Lab results narrative: CBC, CMP, Lipase, Troponin x2 sets all negative 09/04/24 15:27 09/04/24 15:27 Labs: Lab Results 09/04/24 09/04/24 Range/Units 15:27 17:55 WBC 5.8 (4.5-11.0) X10^3/uL RBC 4.30 (4.0-5.2) X10^6/uL Hgb 13.7 (12.0-16.0) g/dL Hct 41.1 (36-46) % MCV 95.6 (80-100) fL MCH 31.9 (26-34) PG MCHC 33.4 (30-36) % RDW 12.9 (11.6-14.8) % Plt Count 252 (150-400) X10^3/uL Neut % (Auto) 70.5 (50-75) % Lymph % (Auto) 17.6 L (25-40) % Real % (Auto) 9.0 (3-14) % Eos % (Auto) 2.5 (2-4) % Baso % (Auto) 0.4 (0-2) % Neut # (Auto) 4100 (2625-4413) /uL Lymph # (Auto) 1000 L (0662-7751) /uL Real # (Auto) 500 (0-900) /uL Eos # (Auto) 100 (0-450) /uL Baso # (Auto) 0 (0-100) /uL PT 12.0 (9.4-12.5) SECONDS INR 1.1 (0.9-1.3) APTT 32 (25.1-36.5) SECONDS Sodium 140 (137-145) mmol/L Potassium 3.9 (3.4-5.1) mmol/L Chloride 105 (98-107) mmol/L Carbon Dioxide 27 (22-32) mmol/L BUN 13 (7-17) mg/dL Creatinine 0.68 (0.52-1.04) mg/dL Estimated GFR > 60 (>60) mL/min BUN/Creatinine Ratio 19.1 (6-22) Glucose 107 H (70-100) mg/dL Calcium 9.3 (8.4-10.2) mg/dL Magnesium 1.9 (1.6-2.3) mg/dL Total Bilirubin 0.4 (0.2-1.3) mg/dL AST 33 (14-36) IU/L ALT 20 (<35) IU/L Alkaline Phosphatase 49 (38-126) U/L Total Creatine Kinase 51 (30-135) U/L Troponin I < 0.012 < 0.012 (0.01-0.034) ng/mL NT-Pro-B Natriuret Pep 40 (<125) pg/mL Total Protein 7.6 (6.3-8.2) g/dL Albumin 4.8 (3.5-5.0) g/dL Globulin 2.8 (1.7-4.1) g/dL Albumin/Globulin Ratio 1.7 (1.0-2.8) Lipase 187 (23-300) U/L Point of Care Testing Test Results Negative Urine Dip Bedside Urine Glucose Negative Bedside Urine Bilirubin - Negative Bedside Urine Ketone - Negative Urine Specific [place] 1.005 Bedside Urine Occult Blood - Negative Bedside Urine pH 6.5 Bedside Urine Protein - Negative Bedside Urine Urobilinogen - Negative Bedside Urine Nitrite - Negative Bedside Urine Leukocytes - Negative Esterase Imaging Data Chest x-ray: Radiologist's Impression: [address] [address] XRay Report Signed Patient: Melissa Owen MR#: [id number] : 1980 Acct:[id number] Age/Sex: 44 / F Date of Service: 09/04/24 Loc: ED Accession Number: [id number] Procedure: XR chest 1V Ordering Provider: Mani Rojas MD PROCEDURE: XR CHEST 1V INDICATIONS: chest pain TECHNIQUE: One view of the chest was acquired. COMPARISON: [facility], CR, XR CHEST 2V, 04/19/2024, 15:25. FINDINGS: Surgical changes and devices: None. Lungs and pleura: Lungs are clear. No pleural effusions or pneumothorax. Mediastinum: Mediastinal contours appear normal. Heart size is normal. Bones and chest wall: No suspicious bony lesions. Overlying soft tissues appear unremarkable. IMPRESSION: No acute cardiopulmonary abnormality is seen. Dictated by: Deniz Garcia M.D. on 09/04/2024 at 15:00 Approved by: Deniz Garcia M.D. on 09/04/2024 at 15:01 CT scan - head: Radiologist's Impression: [place] [address] CT Scan Report Signed Patient: Melissa Owen MR#: [id number] : 1980 Acct:[id number] Age/Sex: 44 / F Date of Service: 09/04/24 Loc: ED Accession Number: [id number] Procedure: CT head/brain wo con Ordering Provider: Mani Rojas MD PROCEDURE: CT HEAD/BRAIN WO CON INDICATIONS: episode unable to speak TECHNIQUE: Noncontrast 4.5 mm thick angled axial sections acquired from the foramen magnum to the vertex, with coronal and sagittal reformats. For radiation dose reduction, the following was used: automated exposure control, adjustment of mA and/or kV according to patient size. COMPARISON: [facility], CT, CT ANGIO HEAD AND NECK, 09/04/2024, 17:45. FINDINGS: Image quality: Diagnostic. CSF spaces: Basal cisterns are patent. No extra-axial fluid collections. Ventricles are normal in size and shape. Brain: No midline shift. No intracranial masses or hemorrhage. Portillo-white matter interface is normal. Skull and face: Calvarium and visualized facial bones are intact, without suspicious lesions. Sinuses: Visualized sinuses and mastoids are clear. IMPRESSION: Normal noncontrast head CT for age. If there is strong clinical suspicion for an acute stroke, please consider a brain MRI for further evaluation, as it is more sensitive (assuming that there is no contraindication to MRI). Dictated by: Deniz Garcia M.D. on 09/04/2024 at 17:30 Approved by: Deniz Garcia M.D. on 09/04/2024 at 17:30 CTA - brain/neck: Radiologist's Impression: [address] [address] [address] Scan Report Signed Patient: Melissa Owen MR#: [id number] : 1980 Acct:[id number] Age/Sex: 44 / F Date of Service: 09/04/24 Loc: ED Accession Number: [id number] Procedure: CT angio head and neck Ordering Provider: Mani Rojas MD PROCEDURE: CT ANGIO HEAD AND NECK INDICATIONS: episode unable to speak TECHNIQUE: After the administration of intravenous contrast, 1 mm thick sections acquired from the aortic arch through the [place] of [place]. 3-dimensional uvadioj-mhbflizyd-lyqlhrwayk (MIP) and/or volume rendering reformats were acquired of the central intracranial vasculature and neck separately. For radiation dose reduction, the following was used: automated exposure control, adjustment of mA and/or kV according to patient size. COMPARISON: [facility], CT, CT HEAD/BRAIN WO CON, 09/04/2024, 17:45. [facility], CR, XR CHEST 1V, 09/04/2024, 15:11. FINDINGS: Image quality: Limited by bolus timing, with venous contamination. There is artifact associated with the metallic hardware. Artifact from the metallic hardware is reduced by metal reconstruction algorithm. There is streak artifact seen through the level of the shoulders. BRAIN: CSF spaces: Ventricles are normal in size and shape. Basal cisterns are patent. No extra-axial fluid collections. Brain: No significant abnormality of the brain can be seen. Skull and face: Calvarium and facial bones appear intact, without suspicious lesions. Orbits appear normal. Sinuses: Sinuses and mastoids are clear. HEAD CT ANGIOGRAPHY: Anterior circulation: Intracranial internal carotid arteries are normal in size and flow. The flow within the paired anterior cerebral arteries is normal and symmetric. The flow within the middle cerebral arteries is normal and symmetric. The anterior communicating artery is seen. No aneurysms are seen. Posterior circulation: Visualized portions of the vertebral arteries demonstrate normal caliber, and join to form a normal appearing basilar artery. Flow within the posterior cerebral arteries is normal and symmetric. No aneurysms are seen. NECK CT ANGIOGRAPHY: Carotid system: Incidental note is made of a common origin of the right brachiocephalic artery and the left common carotid artery (bovine type arch). This is considered to be a developmental variant of no clinical consequence. The origins of the common carotid arteries appear patent. The common carotid arteries demonstrate normal caliber and courses. The bifurcation regions are both widely patent. The internal carotid arteries demonstrate normal calibers and courses. Posterior circulation: The origins of the vertebral arteries both appear widely patent. The more superior extracranial portions of both vertebral arteries also demonstrate normal courses and calibers. They join to form a normal appearing basilar artery. Soft tissues: Visualized neck soft tissues demonstrate no suspicious abnormalities. Bones: No suspicious bony lesions. Visualized cervical spine appears normally aligned. IMPRESSION: No significant intracranial arterial abnormality is seen. No significant abnormality is seen within the arteries of the neck. Additional findings: Bovine type aortic branching pattern Any quantitative measurements of stenosis were performed using NASCET criteria. Dictated by: Deniz Garcia M.D. on 09/04/2024 at 17:30 Approved by: Deniz Garcia M.D. on 09/04/2024 at 17:32 ECG Data Attestation: I personally reviewed and interpreted this ECG as follows: Interpretation: Normal sinus rhythm with rate of 63, no obvious ST segment elevation or depression changes. WI interval 156, QRS 100, QTC 409. [facility] Narrative Medical decision making narrative: 44-year-old female with intermittent chest discomfort and dizziness, had episode inability to speak with generalized weakness lasting 10 minutes a couple of nights ago, subsequent generalized weakness that seems improved, here for further evaluation. Screening EKG unremarkable. Labs pending. Possible recent stroke-like symptoms, CT head noncontrast study ordered, CT angiogram head and neck vessels ordered. Labs unremarkable. Troponin x2 negative. CT Head no acute changes, see radiology report. CTA Head/Neck no acute changes, no narrowing/thromboses, see radiology report. Consider further workup as inpatient that might include MRI Brain, Echo, cardiac monitoring, fasting lipids. Patient declined admit, preferred to have further workup as an outpatient, to be coordinated via PCP at [facility]. Advised taking oral aspirin daily. Consider outpatient cardiology consultation. Consider outpatient neurology consultation. Home with partner, taking ferry back to [place] this evening. Return precautions discussed. Discharge Plan Departure Patient Disposition: Home Clinical Impression: Transient ischemic attack, Dizziness, Chest discomfort Activity Restrictions/Additional Instructions: Ongoing intermittent dizziness with chest discomfort, prior Cardiology consultation, unclear etiology. Now with recent episode 2 days ago of inability to speak, with generalized weakness and heaviness of 10 minutes duration, also of unclear etiology. Reassuring examination now. CT head noncontrast study tonight showed no acute changes per Radiology report. CT angiogram of the head vessels in the neck vessels showed no narrowing of significance, no thrombosis or abnormalities, per Radiology report. Regarding your chest discomfort symptoms, your chest x-ray and your EKG or blood work were reassuring, no evidence of heart attack or heart dysrhythmia or electrolyte disturbance for example were identified tonight. Inability to speak for a number of minutes might represent transient ischemic attack, sometimes referred to as a mini stroke, can be a precursor to a larger and more permanent stroke in the future. Further workup often times will include echocardiogram of the heart, cardiac monitoring, MRI of the brain. We did discuss admission to expedite some of these workups, the you preferred to have further workup as an outpatient for now. Please consider taking an oral aspirin daily, which is in antiplatelet to help prevent stroke. Follow up early next week with your primary care provider at [facility], to expedite outpatient studies above. Consider Cardiology consultation in follow up. Consider neurology consultation in follow up. Return to this/nearest emergency department for any change worsening symptoms or any concerns prior Prescriptions: No Action valacyclovir 1 gram tablet 1,000 mg PO DAILY Qty: 90 3RF alprazolam 0.25 mg tablet 0.125 mg PO BID MDD 0.25mg PRN (Reason: anxiety) Qty: 10 0RF Referrals: Sunita Jordan PA-C [Primary Care Provider] - Stand Alone Forms: Patient Portal/API/Survey
--- NOTE | 2024-09-04 17:42 | DI.CT.S_ITS ---
PROCEDURE: CT HEAD/BRAIN WO CON INDICATIONS: episode unable to speak TECHNIQUE: Noncontrast 4.5 mm thick angled axial sections acquired from the foramen magnum to the vertex, with coronal and sagittal reformats. For radiation dose reduction, the following was used: automated exposure control, adjustment of mA and/or kV according to patient size. COMPARISON: [facility], CT, CT ANGIO HEAD AND NECK, 09/04/2024, 17:45. FINDINGS: Image quality: Diagnostic. CSF spaces: Basal cisterns are patent. No extra-axial fluid collections. Ventricles are normal in size and shape. Brain: No midline shift. No intracranial masses or hemorrhage. Portillo-white matter interface is normal. Skull and face: Calvarium and visualized facial bones are intact, without suspicious lesions. Sinuses: Visualized sinuses and mastoids are clear. IMPRESSION: Normal noncontrast head CT for age. If there is strong clinical suspicion for an acute stroke, please consider a brain MRI for further evaluation, as it is more sensitive (assuming that there is no contraindication to MRI). Dictated by: Deniz Garcia M.D. on 09/04/2024 at 17:30 Approved by: Deniz Garcia M.D. on 09/04/2024 at 17:30
--- NOTE | 2024-09-04 17:43 | DI.CT.S_ITS ---
PROCEDURE: CT ANGIO HEAD AND NECK INDICATIONS: episode unable to speak TECHNIQUE: After the administration of intravenous contrast, 1 mm thick sections acquired from the aortic arch through the [place] of [place]. 3-dimensional csesnqc-ubgxcosas-ylwofxubks (MIP) and/or volume rendering reformats were acquired of the central intracranial vasculature and neck separately. For radiation dose reduction, the following was used: automated exposure control, adjustment of mA and/or kV according to patient size. COMPARISON: [facility], CT, CT HEAD/BRAIN WO CON, 09/04/2024, 17:45. [facility], CR, XR CHEST 1V, 09/04/2024, 15:11. FINDINGS: Image quality: Limited by bolus timing, with venous contamination. There is artifact associated with the metallic hardware. Artifact from the metallic hardware is reduced by metal reconstruction algorithm. There is streak artifact seen through the level of the shoulders. BRAIN: CSF spaces: Ventricles are normal in size and shape. Basal cisterns are patent. No extra-axial fluid collections. Brain: No significant abnormality of the brain can be seen. Skull and face: Calvarium and facial bones appear intact, without suspicious lesions. Orbits appear normal. Sinuses: Sinuses and mastoids are clear. HEAD CT ANGIOGRAPHY: Anterior circulation: Intracranial internal carotid arteries are normal in size and flow. The flow within the paired anterior cerebral arteries is normal and symmetric. The flow within the middle cerebral arteries is normal and symmetric. The anterior communicating artery is seen. No aneurysms are seen. Posterior circulation: Visualized portions of the vertebral arteries demonstrate normal caliber, and join to form a normal appearing basilar artery. Flow within the posterior cerebral arteries is normal and symmetric. No aneurysms are seen. NECK CT ANGIOGRAPHY: Carotid system: Incidental note is made of a common origin of the right brachiocephalic artery and the left common carotid artery (bovine type arch). This is considered to be a developmental variant of no clinical consequence. The origins of the common carotid arteries appear patent. The common carotid arteries demonstrate normal caliber and courses. The bifurcation regions are both widely patent. The internal carotid arteries demonstrate normal calibers and courses. Posterior circulation: The origins of the vertebral arteries both appear widely patent. The more superior extracranial portions of both vertebral arteries also demonstrate normal courses and calibers. They join to form a normal appearing basilar artery. Soft tissues: Visualized neck soft tissues demonstrate no suspicious abnormalities. Bones: No suspicious bony lesions. Visualized cervical spine appears normally aligned. IMPRESSION: No significant intracranial arterial abnormality is seen. No significant abnormality is seen within the arteries of the neck. Additional findings: Bovine type aortic branching pattern Any quantitative measurements of stenosis were performed using NASCET criteria. Dictated by: Deniz Garcia M.D. on 09/04/2024 at 17:30 Approved by: Deniz Garcia M.D. on 09/04/2024 at 17:32
[2024-09-04 18:29] LABS: Troponin I < 0.012 ng/mL (0.01-0.034)
== END 2024-09-04 19:24 | disposition home or self-care (01) ==
PROVIDERS: Emergency Provider Emergency Medicine; PCP Physician Assistant Medical
DX: G45.9 Transient cerebral ischemic attack, unspecified (principal); R42 Dizziness and giddiness; R07.9 Chest pain, unspecified
CPT/HCPCS: 36415; 70450; 70496; 70498; 71045; 80053; 81003; 81025; 82550; 83690; 83735; 83880; 84484; 85025; 85610; 85730; 93005; 99284; Q9967

== ENCOUNTER → 2024-10-18 15:24 | Outpatient (CLI) | payer OTHER, SELFPAY ==
--- NOTE | 2024-10-18 15:28 | DI.MRI.S_ITS ---
PROCEDURE: MR HEAD/BRAIN WO CON INDICATIONS: possible TIA TECHNIQUE: Noncontrast axial T1 spin echo, axial T2 fast spin echo, sagittal and axial FLAIR, coronal T2 fast spin echo, axial gradient echo, axial diffusion and ADC through the brain. COMPARISON: [facility], CT, CT ANGIO HEAD AND NECK, 09/04/2024, 17:45. [facility], CT, CT HEAD/BRAIN WO CON, 09/04/2024, 17:45. FINDINGS: Image quality: Excellent. CSF Spaces: Basal cisterns are patent. No extra-axial fluid collections. Ventricles are normal in size and shape. Brain: No intracranial masses or hemorrhage. Portillo/white matter interface is normal. Brainstem appears normal. Diffusion-weighted images demonstrate no acute infarct. No chronic ischemic insults. Normal intravascular flow voids are present. Skull and face: Calvarium has normal marrow signal. Orbits appear normal. Sinuses: Sinuses and mastoids are clear. IMPRESSION: No findings of acute or subacute infarction can be seen. Dictated by: Deniz Garcia M.D. on 10/18/2024 at 17:29 Approved by: Deniz Garcia M.D. on 10/18/2024 at 17:29
--- NOTE | 2024-10-18 15:28 | DI.US.S_ITS ---
PROCEDURE: US THYROID INDICATIONS: Follow up to 11/23/2018, 06/21/2020 and 12/03/2021 PH USs TECHNIQUE: Real-time scanning was performed of the thyroid gland, with image documentation. COMPARISON: Outside Facility, US, US THYROID, 06/21/2020, 13:37. Outside Facility, US, US THYROID, 11/23/2018, 11:55. Outside Facility, US, US THYROID, 12/03/2021, 14:48. FINDINGS: Thyroid: Right lobe measures 5.8 x 1.4 x 1.4 cm. Left lobe measures 4.5 x 1.4 x 1.4 cm. Isthmus is 0.3 cm thick. Echotexture is homogeneous. Nodule number: 1 Location: Mid right Size: 1.1 x 0.8 x 1.0 cm compared to 1.2 x 0.8 x 1.2 cm. Composition: Solid Echogenicity: Hypoechoic Shape: wider than tall. Margins: Smooth Echogenic foci: Punctate Total points: 7 ACR TI-RADS category: 5 IMPRESSION: Lesion 1 is considered category 5. Secondary to characteristics, FNA is recommended. However, it has been stable since 2019 therefore imaging follow-up may be a reasonable alternative. ACR TI-RADS definitions and recommendations: TI-RADS 1 (benign): 0 points. FNA not needed. TI-RADS 2 (not suspicious): 2 points. FNA not needed. TI-RADS 3: 3 points. * FNA if 2.5 cm or larger, follow up if 1.5 cm or larger (at 1, 3, and 5 years). TI-RADS 4: 4-6 points. * FNA if 1.5 cm or larger, follow up if 1 cm or larger (at 1, 2, 3, and 5 years). TI-RADS 5: 7 points or more. * FNA if 1 cm or larger, follow up if 0.5 cm or larger (every year for 5 years). Dictated by: Maame Rodriges M.D. on 10/18/2024 at 20:52 Approved by: Maame Rodriges M.D. on 10/18/2024 at 20:55
== END ==
LOC: US 15:26
PROVIDERS: PCP Physician Assistant Medical; Referring Provider Physician Assistant Medical; Visit Provider Physician Assistant Medical
DX: E04.1 Nontoxic single thyroid nodule (principal); R47.01 Aphasia; R53.1 Weakness
CPT/HCPCS: 70551; 76536

== ENCOUNTER → 2024-10-28 11:24 | Outpatient (CLI) | payer OTHER, SELFPAY ==
[2024-10-28 22:11] LABS: Cholesterol 217 mg/dL (140-199); HDL Cholesterol 69 mg/dL (40-60); LDL Cholesterol Calculated 136 mg/dL (<100); Triglycerides 61 mg/dL (35-150)
== END ==
PROVIDERS: PCP Physician Assistant Medical; Visit Provider Physician Assistant Medical
DX: R47.01 Aphasia (principal); R53.1 Weakness; F41.9 Anxiety disorder, unspecified; R00.1 Bradycardia, unspecified; R07.89 Other chest pain; R53.83 Other fatigue
CPT/HCPCS: 80061

== ENCOUNTER → 2024-12-22 14:22 | Outpatient (CLI) | payer OTHER, SELFPAY ==
--- NOTE | 2024-12-22 14:23 | DI.ECHO.S_ITS ---
[facility] : : [address] : : [place] : : [address] : : Phone: [phone] Echocardiogram Report + + :Name: CATRINA MOSQUERA Study Date: 12/22/2024 Height: 68 in : :Hospital ReadingLocation: Weight: 135 lb : : Gender: Female BSA: 1.7 m2 : :: 1980 Age: 44 yrs BP: 120/73 mmHg: :Reason For Study: CHEST TIGHTNESS : :Ordering Physician: MARY KATE, : :JANELL Performed By: Jessika Ann : :Referring: JANELL HARTMANN : + + Interpretation Summary The ejection fraction is estimated to be 55-60%. There is no significant valvular heart disease. Procedure: A two-dimensional transthoracic echocardiogram with color flow and Doppler was performed. The study quality was technically adequate. There is no prior echocardiogram noted for this patient. The patient was in sinus bradycardia with heart rates between 49-65 bpm during the exam. Left Ventricle: The left ventricle is normal in size and wall thickness. The ejection fraction is estimated to be 55-60%. Left ventricular wall motion is normal. Right Ventricle: The right ventricle is normal in size and function. Atria: The left atrial size is normal. Right atrial size is normal. There is no Doppler evidence for an interatrial shunt. Mitral Valve: The mitral valve leaflets appear to open well. There is trace mitral regurgitation. Aortic Valve: The aortic valve is trileaflet. The aortic valve opens well. There is no aortic valve stenosis. There is trace aortic regurgitation. Tricuspid Valve: The tricuspid valve leaflets are thin and pliable. There is trace tricuspid regurgitation. Pulmonary artery pressures cannot be estimated because of the lack of a measurable TR jet velocity. Pulmonic Valve: The pulmonic valve leaflets are thin and pliable; valve motion is normal. There is a trace or physiologic amount of pulmonic regurgitation. Great Vessels: The aortic root is normal size. The dimensions of the ascending aorta are normal. The IVC is dilated (diameter is greater than 2.1 cm) yet it collapses greater than 50% with a sniff. This suggests a right atrial pressure of 8 mm Hg. Pericardium/ Pleura There is no pericardial effusion. There is no pleural effusion. MMode/2D Measurements & Calculations LVIDd: 4.9 cm LVOT diam: 2.1 cm LVIDs: 3.1 cm Ao root diam: 2.9 cm FS: 36.9 % asc Aorta Diam: 2.7 cm IVSd: 0.77 cm Ao Arch Diam (Prox Trans): 2.2 cm LVPWd: 0.64 cm LV cruz. diameter/BSA (cm/m^2): 2.8 LV sys. diameter/BSA (cm/m^2): 1.8 LA A2 area: 15.9 cm2 RA long axis: 4.9 cm LA A4 area: 15.2 cm2 RA area: 15.1 cm2 LA length (vol): 4.5 cm RA vol: 39.9 ml LA vol: 45.2 ml RA : 23.1 ml/m2 LA vol index: 26.2 ml/m2 IVC diam: 2.3 cm RVD1 (basal): 3.3 cm TAPSE: 2.2 cm Doppler Measurements & Calculations Ao V2 max: 103.4 cm/sec LVOT Max Blue: 77.4 cm/sec Ao V2 mean: 70.9 cm/sec LV V1 max P.4 mmHg Ao max P.3 mmHg LV V1 VTI: 16.6 cm Ao mean P.3 mmHg SVEN(I,D): 2.6 cm2 Ao V2 VTI: 22.7 cm SVEN(V,D): 2.6 cm2 sev ratio: 0.73 SVEN indexed to BSA (cm^2/m^2): 1.5 MV E max blue: 69.8 cm/sec PA V2 max: 94.4 cm/sec MV A max blue: 55.1 cm/sec PA V2 mean: 64.6 cm/sec MV E/A: 1.3 PA mean P.9 mmHg Med Peak E' Blue: 10.1 cm/sec PA pr(Accel): 10.9 mmHg E/E' med: 6.9 Lat Peak E' Blue: 11.4 cm/sec E/E' lat: 6.1 E/e' average: 6.5 MV dec time: 0.19 sec SV(LVOT): 58.6 ml Reading Physician:09:01 AM
== END ==
PROVIDERS: PCP Physician Assistant Medical; Referring Provider Physician Assistant Medical; Visit Provider Physician Assistant Medical
DX: R00.1 Bradycardia, unspecified (principal); R07.89 Other chest pain
CPT/HCPCS: 93306

== ENCOUNTER → 2024-12-23 11:53 | Outpatient (CLI) | payer OTHER, SELFPAY | PROVIDERS: PCP Physician Assistant Medical; Visit Provider Physician Assistant Medical | DX: R53.1 Weakness (principal); R42 Dizziness and giddiness; R53.83 Other fatigue | CPT/HCPCS: 87086 ==

== ENCOUNTER → 2024-12-30 11:34 | Outpatient (CLI) | payer OTHER, SELFPAY ==
[2024-12-30 19:29] LABS: HEMOLYSIS < 15 (0-50); Iron 125 ug/dL (37-170)
[2024-12-30 19:33] LABS: Alanine Aminotransferase 13 IU/L (<35); Albumin 4.6 g/dL (3.5-5.0); Albumin Globulin Ratio 1.8 (1.0-2.8); Alkaline Phosphatase 43 U/L (38-126); Aspartate Aminotransferase 23 IU/L (14-36); BUN Creatinine Ratio 17.1 (6-22); Bilirubin Total 0.5 mg/dL (0.2-1.3); Blood Urea Nitrogen 12 mg/dL (7-17); C-Reactive Protein Quant < 0.5 mg/dL (<1.0); Calcium 9.5 mg/dL (8.4-10.2); Carbon Dioxide 28 mmol/L (22-32); Chloride 103 mmol/L (98-107); Estimated Glomerular Filt Rate > 60 mL/min (>60); Globulin 2.5 g/dL (1.7-4.1); Glucose 67 mg/dL (70-100); HEMOLYSIS < 15 (0-50); Potassium 4.5 mmol/L (3.4-5.1); Sodium 138 mmol/L (137-145); Total Protein 7.1 g/dL (6.3-8.2)
[2024-12-30 19:39] LABS: Add Manual Diff / Slide Review NO; Basophils Absolute Auto 0 /uL (0-100); Basophils Percent Auto 0.8 % (0-2); Eosinophils Absolute Auto 100 /uL (0-450); Eosinophils Percent Auto 2.5 % (2-4); Hemoglobin 13.2 g/dL (12.0-16.0); Lymphocytes Absolute Auto 1100 /uL (1100-4500); Lymphocytes Percent Auto 19.4 % (25-40); Mean Corpuscular HGB Conc 33.9 % (30-36); Mean Corpuscular Hemoglobin 31.7 PG (26-34); Mean Corpuscular Volume 93.5 fL (80-100); Monocytes Absolute Auto 500 /uL (0-900); Monocytes Percent Auto 9.2 % (3-14); Neutrophils Absolute Auto 3800 /uL (1500-7000); Neutrophils Percent Auto 68.1 % (50-75); Platelet Count 208 X10^3/uL (150-400); Red Blood Cell Count 4.17 X10^6/uL (4.0-5.2); White Blood Cell Count 5.6 X10^3/uL (4.5-11.0)
[2024-12-30 19:41] LABS: Percent Iron Saturation 55 % (15-50); Total Iron Binding Capacity 228 ug/dL (265-497); Transferrin 176 mg/dL (206-381)
[2024-12-30 20:00] LABS: TSH w/ Reflex to FT4 0.65 uIU/mL (0.47-4.68)
[2024-12-30 20:38] LABS: Erythrocyte Sedimentation Rate 6 MM/HR (0-20)
== END ==
PROVIDERS: PCP Physician Assistant Medical; Visit Provider Physician Assistant Medical
DX: R53.1 Weakness (principal); R53.83 Other fatigue; R42 Dizziness and giddiness; R79.89 Other specified abnormal findings of blood chemistry; D64.9 Anemia, unspecified
CPT/HCPCS: 80053; 83540; 83550; 84443; 85025; 85651; 86140

== ENCOUNTER → 2025-01-07 14:39 | Outpatient (CLI) | payer OTHER, SELFPAY ==
--- NOTE | 2025-01-07 14:39 | DI.US.S_ITS ---
PROCEDURE: US FINE NEEDLE ASPIRATION INDICATIONS: Right thyroid nodule, fine needle aspiration with cytology requested TECHNIQUE: The indications, alternatives, benefits, risks, and complications of the procedure were explained to the patient. Written informed consent was obtained and placed in the chart. The thyroid region was examined sonographically and a site was chosen for ultrasound guided percutaneous sampling. The skin was prepared and draped in the usual fashion, and anesthetized with 1% lidocaine infiltrated from the skin down to the thyroid gland. Multiple passes were then performed, with contents emptied into an appropriate pathology specimen container. A bandage was applied to the area of access at completion of the study. COMPARISON: Prior ultrasound thyroid October 18, 2024 FINDINGS: Location(s) of lesion(s) sampled: Right thyroid lobe middle 1/3 [place]: 25 gauge hypodermic needles. Number of passes: 6 Medications: 1% lidocaine for local anaesthesia. Complications: None. IMPRESSION: Successful ultrasound-guided thyroid nodule fine needle aspiration, with cytology results pending. Please see chart below for management recommendations based on cytology results. [facility] ReportingRecommendationsNon-diagnostic* Repeat US-guided FNA, with on-site cytology evaluation if possible. * Repeated non-diagnostic nodules without high suspicion US features: close observation vs surgical consult. * Consider surgery if nodule has high suspicion US features, grows >20% in 2 dimensions on followup, or patient has clinical risk factors for malignancy. Benign* If nodule has high suspicion US features: repeat US and FNA within 12 months. * If nodule has low to intermediate suspicion US features: repeat US at 12-24 months. If nodule grows (20% increase in at least 2 dimensions, with minimal increase of 2 mm or >50% change in volume), or development of new suspicious US features, then repeat FNA or continue followup. * If nodule has very low suspicion US features: followup US at >24 months. Atypia of undetermined significance, follicular lesion of undetermined significanceRepeat FNA, molecular testing, followup US, or surgical consult.Follicular neoplasm, suspicious for follicular neoplasmSurgical consult; also consider molecular testing. Suspicious for malignancySurgical consult.MalignantSurgical consult. Dictated by: Cooper Amaya M.D. on 01/08/2025 at 23:20 Approved by: Cooper Amaya M.D. on 01/08/2025 at 23:21
--- NOTE | 2025-01-07 14:41 | PATH_ITS ---
Note [facility] Accession Number: [id number] TESTS RESULT FLAG UNITS REF RANGE LAB Clinician Provided Cytology Information No. of containers..02 Previously Prepared Cytology Slide 35 Unknown Storage/container code(s) Source: RIGHT THYROID NODULE #1 DIAGNOSIS: RIGHT THYROID NODULE #1 ATYPIA OF UNDETERMINED SIGNIFICANCE. B[place] CATEGORY III. ATYPIA OF UNDETERMINED SIGNIFICANCE - OTHER. GROUPS OF EPITHELIAL CELLS WITH ONCOCYTIC FEATURES. THE DIFFERENTIAL DIAGNOSIS INCLUDES ONCOCYTOMA AND BENIGN ONCOCYTIC METAPLASIA. MOLECULAR STUDIES REQUESTED; RESULTS WILL BE REPORTED SEPARATELY. Pathologist ICD10: R89.6, E04.1, E07.9 Signed out by: Sarah Mcfarland MD, Pathologist NPI- [id number] Performed by: Ubaldo Richards, Bookkeeper Assistant ([facility]) Gross description: 30 CC, COLORLESS, CLEAR RECIEVED: IN CYTOLYT WITH 6 ALCOHOL FIXED AND 6 QUICK STAINED SLIDES ALSO 1 RNA VIAL WILL ON 04-22-2025.VO /VDU 01/10/2025 0811 Local FLAG LEGEND: L-Low Normal,H-High Normal,LL-Alert Low,HH-Alert High <-Panic Low,>-Panic High,A-Abnormal,AA-Critical Abnormal Performed at: 01 [facility], [place] [address] Darryl Goss MD, Performed at: [address], [place], [place] [id number] MD Darryl Goss MD Phone: [phone]
== END ==
PROVIDERS: PCP Physician Assistant Medical; Referring Provider Physician Assistant Medical; Visit Provider Physician Assistant Medical
DX: E04.1 Nontoxic single thyroid nodule (principal); E07.9 Disorder of thyroid, unspecified
CPT/HCPCS: 10005